=== PATIENT | female | born 1970 | race Caucasian/White ===

== ENCOUNTER 2021-04-04 11:10 | Emergency (ER) | payer BC ==
--- NOTE | 2021-04-04 12:09 | RAD REPORT ---
EXAM DESCRIPTION: CT - Stone Protocol - 04/04/2021 11:49 am CLINICAL HISTORY: Flank pain. Abd pain;Flank pain COMPARISON: No comparisons TECHNIQUE: Axial images were obtained without oral or IV contrast. Lack of contrast limits solid org an and vascular assessment. The [id number] spans the entirety of the system partially obscuring uppermost abdomen and lung bases. Coronal reformatted images were obtained and reviewed. All CT scans are performed using dose optimization technique as appropriate and may include automated exposure control or mA/KV adjustment according to patient size. FINDINGS: The lower lung estevez are clear. Small gallstone is present in the gallbladder. Imaged portions of the liver and spleen show no suspicious findings on non-contrast imaging. The panc reas and adrenal glands are normal. No pathologic lymphadenopathy in the abdomen or pelvis. Punctate stone is seen in the superior calyx of the right kidney. No hydronephrosis is evident. No bowel obstruction, free air, free fluid or abscess. Normal appendix noted.IUD is present in the ut erus. No significant bony abnormality. IMPRESSION: Punctate calculus superior calyx right kidney.
[2021-04-04 13:26] LABS: Urine Blood 1+ (Negative); Urine Glucose Negative (Negative); Urine Protein Negative (Negative)
[2021-04-04 13:44] LABS: Urine RBC <5 /HPF (NONE SEEN)
[2021-04-04 13:45] LABS: Urine Bacteria LOADED /HPF (<20)
--- NOTE | 2021-04-04 13:48 | ER ---
Nurse's Notes [facility] Name: Luana Pineda Age: 50 yrs Sex: Female : 1970 Arrival Date: 04/04/2021 Time: 11:13 Bed 15 Private MD: Diagnosis: UTI/ Urinary tract infection, site not specified;Muscle spasm of back Presentation: 04/04 11:32 Chief complaint: Patient states: Back spasms for a few months. LLQ abd pain with dry ll1 heaves a couple weeks ago. Coronavirus screen: Client denies travel out of the [place] in the last 14 days. At this time, the client does not indicate any symptoms associated with coronavirus-19. Ebola Screen: Patient denies travel to an Ebola-affected area in the 21 days before illness onset. Initial Sepsis Screen: Does the patient meet any 2 criteria? No. Patient's initial sepsis screen is negative. Does the patient have a suspected source of infection? Yes: Acute abdominal pain. Risk Assessment: Do you want to hurt yourself or someone else? Patient reports no desire to harm self or others. Onset of symptoms was March 18, 2021. 11:32 Method Of Arrival: Ambulatory ll1 11:32 Acuity: SANTIAGO 3 ll1 Historical: - Allergies: 11:35 No Known Allergies; ll1 - PSHx: 11:35 gastric bypass; tubal ligation; ll1 - Immunization history:: Client reports having NOT received the Covid vaccine. Flu vaccine status is unknown. - Social history:: Smoking status: Patient denies any tobacco usage or history of. Screenin:08 Abuse screen: Denies threats or abuse. Nutritional screening: No deficits noted. jd3 Tuberculosis screening: No symptoms or risk factors identified. Fall Risk Ambulatory Aid- None/Bed Rest/Nurse Assist (0 pts). Gait- Normal/Bed Rest/Wheelchair (0 pts) Mental Status- Oriented to own ability (0 pts). Total Pen[place] Fall Scale indicates No Risk (0-24 pts). Assessment: 14:06 General: Appears in no apparent distress. comfortable, Behavior is calm, cooperative, jd3 appropriate for age. Pain: Complains of pain in left flank, right flank and abdomen Quality of pain is described as aching. Neuro: Level of Consciousness is awake, alert, obeys commands, Oriented to person, place, time, situation. Cardiovascular: Denies chest pain, Capillary refill < 3 seconds Patient's skin is warm and dry. Respiratory: Airway is patent Respiratory effort is even, unlabored, Respiratory pattern is regular, symmetrical, Denies cough, shortness of breath. GI: No signs and/or symptoms were reported involving the gastrointestinal system. : Urine is cloudy, Reports pain in right in left flank(s). EENT: No signs and/or symptoms were reported regarding the EENT system. Derm: Skin is intact, Skin is dry, Skin is normal, Skin temperature is warm. Musculoskeletal: Circulation, motion, and sensation intact. Range of motion: intact in all extremities. Vital Signs: 11:32 Resp 18; Temp 97.1; Weight 106.14 kg; Height 5 ft. 9 in. (175.26 cm); Pain 7/10; ll1 11:35 BP 153 / 84; Pulse 77; Pulse Ox 100% ; ll1 14:08 Pulse 75; Resp 17 S; Pulse Ox 100% on R/A; jd3 11:32 Body Mass Index 34.56 (106.14 kg, 175.26 cm) ll1 ED Course: 11:13 Patient arrived in ED. ds1 11:32 Arm band placed on. ll1 11:34 Triage completed. ll1 11:45 [facility]C [facility]. kb 11:45 Ramón Pérez MD is Attending Physician. kb 11:48 CT Stone Protocol In Process Unspecified. EDMS 13:05 Patient placed in an exam room, on a stretcher. ll1 13:07 Davidson Forrest RN is Primary Nurse. jd3 13:28 Urine Microscopic Only Sent. jd3 14:08 Patient has correct armband on for positive identification. Bed in low position. Call jd3 light in reach. Side rails up X 1. Pulse ox on. NIBP on. 14:08 No provider procedures requiring assistance completed. Patient did not have IV access jd3 during this emergency room visit. Administered Medications: 13:47 CANCELLED (Physician Discretion): Augmentin (Amoxicillin-Clavulanate) 875 mg PO once kb 14:06 Drug: Augmentin (Amoxicillin-Clavulanate) 875 mg Route: PO; jd3 14:06 Follow up: Response: Medication administered at discharge. jd3 Outcome: 13:48 Discharge ordered by . salo 14:08 Discharged to home ambulatory, with family. jd3 14:08 Condition: stable 14:08 Discharge instructions given to patient, Instructed on discharge instructions, follow up and referral plans. Demonstrated understanding of instructions, follow-up care, medications, Prescriptions given X 2. 14:09 Patient left the ED. jd3 Addendum: 04/07/2021 08:29 Addendum: Culture Results: Positive urine culture. No further action required. Bacteria s s sensitive to prescribed antibiotic. Signatures: Dispatcher [employer] EDCO Jane Hernandez, FOREMAN/PILE [employer]IVING [employer] ERECTION-C FOREMAN/PILE [employer]IVING [employer]RECTION-Brandi Guerra ds1 Joana Cancino RN RN Davidson Albarado RN RN jd3 Nikole Sharma RN RN ll1
--- NOTE | 2021-04-04 13:48 | EDPHYS ---
Physician Documentation [facility] Name: Luana Pineda Age: 50 yrs Sex: Female : 1970 Arrival Date: 04/04/2021 Time: 11:13 Bed 15 Private MD: ED Physician Ramón Pérez HPI: 04/04 12:58 This 50 yrs old Female presents to ER via Ambulatory with complaints of Back kb Pain - Spasms, Abdominal Pain. 12:58 The patient presents with pain and spasm. The symptoms are located in the left flank kb and right flank. Onset: The symptoms/episode began/occurred "months ago". The pain radiates to the abdomen. Associated signs and symptoms: The patient has no apparent associated signs or symptoms. The problem was sustained from unknown cause. Modifying factors: The patient symptoms are alleviated by nothing, the patient symptoms are aggravated by any movement, nothing. Severity of symptoms: At their worst the symptoms were moderate, in the emergency department the symptoms have improved. The patient has not experienced similar symptoms in the past. The patient has not recently seen a physician. Patient reports intermittent back spasms for months. States a couple of weeks ago the cramps started radiating around abdomen and causing nausea. States it happened this morning and she decided to come in to see what was going on today. Has appointment this week with PCP.. Historical: - Allergies: 11:35 No Known Allergies; ll1 - PSHx: 11:35 gastric bypass; tubal ligation; ll1 - Immunization history:: Client reports having NOT received the Covid vaccine. Flu vaccine status is unknown. - Social history:: Smoking status: Patient denies any tobacco usage or history of. ROS: 12:17 Constitutional: Negative for fever, chills, and weight loss. kb 12:18 Abdomen/GI: Positive for abdominal pain, nausea, Negative for vomiting. kb 12:18 Back: Positive for low back spasms that radiate around to abd. 12:18 All other systems are negative. Exam: 12:57 Constitutional: This is a well developed, well nourished patient who is awake, alert, kb and in no acute distress. Head/Face: Normocephalic, atraumatic. ENT: Moist Mucous membranes Cardiovascular: Regular rate and rhythm with a normal S1 and S2. No gallops, murmurs, or rubs. No pulse deficits. Respiratory: Respirations even and unlabored. No increased work of breathing, no retractions or nasal flaring. Abdomen/GI: Soft, non-tender. No distention Back: No spinal tenderness. No costovertebral tenderness. Full range of motion. Skin: Warm, dry with normal turgor. Normal color. MS/ Extremity: Pulses equal, no cyanosis. Neurovascular intact. Full, normal range of motion. Neuro: Awake and alert, GCS 15, oriented to person, place, time, and situation. Moves all extremities. Normal gait. Psych: Awake, alert, with orientation to person, place and time. Behavior, mood, and affect are within normal limits. Vital Signs: 11:32 Resp 18; Temp 97.1; Weight 106.14 kg; Height 5 ft. 9 in. (175.26 cm); Pain 7/10; ll1 11:35 BP 153 / 84; Pulse 77; Pulse Ox 100% ; ll1 14:08 Pulse 75; Resp 17 S; Pulse Ox 100% on R/A; jd3 11:32 Body Mass Index 34.56 (106.14 kg, 175.26 cm) ll1 MDM: 11:47 Patient medically screened. kb 12:16 Data reviewed: vital signs, nurses notes. Data interpreted: Pulse oximetry: on room air kb is 100 %. Interpretation: normal. 12:57 Counseling: I had a detailed discussion with the patient and/or guardian regarding: the kb historical points, exam findings, and any diagnostic results supporting the discharge/admit diagnosis, lab results, radiology results, the need for outpatient follow up, a family practitioner, to return to the emergency department if symptoms worsen or persist or if there are any questions or concerns that arise at home. 04/04 13:25 Order name: Urine Dipstick-Ancillary; Complete Time: 13:27 EDNH 04/04 13:26 Order name: Urine Microscopic Only; Complete Time: 13:46 kb 04/04 11:40 Order name: CT Stone Protocol; Complete Time: 12:10 ll1 04/04 13:46 Order name: Urine Culture [facility] 04/04 11:40 Order name: Urine Dipstick-Ancillary (obtain specimen); Complete Time: 13:28 ll1 Administered Medications: 13:47 CANCELLED (Physician Discretion): Augmentin (Amoxicillin-Clavulanate) 875 mg PO once kb 14:06 Drug: Augmentin (Amoxicillin-Clavulanate) 875 mg Route: PO; jd3 14:06 Follow up: Response: Medication administered at discharge. jd3 Disposition: 16:04 Co-signature as Attending Physician, Ramón Pérez MD. rn Disposition Summary: 04/04/21 13:48 Discharge Ordered Location: Home kb Condition: Stable kb Diagnosis - UTI/ Urinary tract infection, site not specified kb - Muscle spasm of back kb Followup: kb - With: Emergency Department - When: As needed - Reason: Worsening of condition Followup: kb - With: Private Physician - When: 2 - 3 days - Reason: Recheck today's complaints, Continuance of care, Re-evaluation by your physician Discharge Instructions: - Discharge Summary Sheet kb - Urinary Tract Infection, Adult, [id number] kb - Muscle Cramps and Spasms, [id number] kb Forms: - Medication Reconciliation Form kb - Thank You Letter kb - Antibiotic Education kb - Prescription Opioid Use kb Prescriptions: - Augmentin 875-125 mg Oral Tablet - take 1 tablet by ORAL route every 12 hours for 10 days; 20 tablet; Refills: 0, kb Product Selection Permitted - Cyclobenzaprine 10 mg Oral Tablet - take 1 tablet by ORAL route every 8 hours As needed; 21 tablet; Refills: 0, kb Product Selection Permitted Signatures: Dispatcher [employer] EDMS Jane Hernandez, DUONG-C VETERINARY PHARMACOLOGIST-Ramón Fink MD MD rn Davies, Jonathon, RN RN jNikole Ding RN RN ll1 Corrections: (The following items were deleted from the chart) 12:18 12:16 Counseling: I had a detailed discussion with the patient and/or guardian regarding: the historical points, exam findings, and any diagnostic results supporting the discharge/admit diagnosis, lab results, radiology results, the need for outpatient follow up, a urologist, to return to the emergency department if symptoms worsen or persist or if there are any questions or concerns that arise at home, kb 12:18 12:16 ED course: Discussed findings with ERP. Recommended outpatient follow up with kb urologist. Pt in agreement with plan. PT educated on return precautions. Verbal understanding received. . kb 12:18 12:17 Constitutional: Negative for fever, chills, and weight loss, kb kb 13:47 13:47 Augmentin (Amoxicillin-Clavulanate) 875 mg PO once ordered. kb kb
[2021-04-04] MEDS ORDERED: AMOX/K CLAV 875 MG TAB ONE (14:22)
[2021-04-04 14:24] VITALS: TEMP 97.1
[2021-04-04 14:30] VITALS: BP 153/84; O2SAT 100
== END 2021-04-04 14:09 | disposition home or self-care (01) ==
LOC: ER 11:10
DX: N39.0 Urinary tract infection, site not specified (principal)
CPT/HCPCS: 74176; 76377; 81003; 81015; 87077; 87086; 87088; 87186; 99284

== ENCOUNTER 2023-12-14 23:54 | Emergency (ER) | payer BC ==
--- OUTSIDE RECORDS SUMMARY | 2023-12-14 23:58 | XMS REPORT | Continuity of Care Document ---
Author Name Unknown Address [address] [facility] 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 Name Role Phone Trish Archer Attending Clinician Unavailable GC_GCBZW_Kadiyala_S Attending Clinician Unavaila ble WILFRID_John_ Attending Clinician Unavaila ble GC_GCBZW_Kadiyala_S Admitting Clinician Unavaila ble WILFRID_John_ Admitting Clinician Unavaila ble Payers Payer Name Policy Type Policy Number Effective Date Expirati on Date Source [place] [id number] 2020 00:00:00 Blue Cross Blue [facility] 6 [id number] 2020 00:00:00 [facility] Problems Condition Name Condition Details Condition Category Status Onset Date Resolution Date Last Treatment Date Treating Clinician Comments Source Excessive and frequent menstruati on Excessive and Frequent Menstruati on Problem Active 11-30 00:00: 00 [facility] Intertrigo Intertrigo Problem Active 11-30 00:00: 00 [facility] Reduced libido Reduced Libido Problem Active 11-30 00:00: 00 [facility] Essential hypertensi on Essential Hypertensi on Problem Active 11-27 00:00: 00 [facility] Abnormal heart beat Abnormal Heart Beat Problem Active 11-27 00:00: 00 [facility] Medical Vitamin D deficiency Vitamin D deficiency Problem [facility] [id number] Gastric bypass status for obesity Problem [facility] [id number] Vertigo Problem [facility] [id number] Anxiety about health Problem [facility] [id number] BMI 37.0-37.9, adult Problem [facility] Iron deficiency Iron deficiency Problem [facility] [id number] Reactive depression Problem [facility] Hyperlipid emia Hyperlipid emia Problem [facility] [id number] Encounter for annual routine gynecologi mabel examinatio n Problem [facility] [id number] Dysuria Problem [facility] [id number] Prediabete s Problem [facility] Family history of ischemic heart disease Family history of coronary artery disease in daughter Problem [facility] mammogram - screening Screening mammogram, encounter for Problem [facility] Social History Social Habit Start Date Stop Date Quantity Comments Source History of Tobacco Use [facility] Sex Assigned At [facility] Smoking Status Start Date Stop Date Source Never Smoker [facility] Medications Ordered Medication Name Filled Medication Name Start Date Stop Date Current Medication? Ordering Clinician Indication Dosage Frequency Signature (SIG) Comments Components Source Wegovy 0.25 MG/0.5ML Wegovy 0.25 MG/0.5ML 04-20 00:00: 00 No .5{ml} Wegovy 0.25 MG/0.5ML Wegovy 0.25 MG/0.5ML Wegovy 0.25 MG/0.5ML 04-20 00:00: 00 No .5{ml} Wegovy 0.25 MG/0.5ML Wegovy 0.25 MG/0.5ML Wegovy 0.25 MG/0.5ML 04-20 00:00: 00 No .5{ml} Wegovy 0.25 MG/0.5ML Wegovy 0.25 MG/0.5ML Wegovy 0.25 MG/0.5ML 8 00:00: 00 No .5{ml} Wegovy 0.25 MG/0.5ML Wegovy 0.25 MG/0.5ML Wegovy 0.25 MG/0.5ML 04-20 00:00: 00 No .5{ml} Wegovy 0.25 MG/0.5ML Wegovy 0.25 MG/0.5ML Wegovy 0.25 MG/0.5ML 04-20 00:00: 00 No .5{ml} Wegovy 0.25 MG/0.5ML Wegovy 0.25 MG/0.5ML Wegovy 0.25 MG/0.5ML 04-20 00:00: 00 No .5{ml} Wegovy 0.25 MG/0.5ML Wegovy 0.25 MG/0.5ML Wegovy 0.25 MG/0.5ML 04-20 00:00: 00 No .5{ml} Wegovy 0.25 MG/0.5ML Mirena 21 mcg/24 hours (8 yrs) 52 mg intrauterin e device Take by intrauterin e route. Mirena 21 mcg/24 hours (8 yrs) 52 mg intrauterin e device Take by intrauterin e route. 09-04 00:00: 00 No Mirena 21 mcg/24 hours (8 yrs) 52 mg intrauteri ne device Take by intrauteri ne route. [facility] vitamin B complex vitamin B complex No vitamin B complex [facility] Bariatric Multivitami ns/Iron - Bariatric Multivitami ns/Iron - No Bariatric Multivitam ins/Iron - Losartan Potassium 100 MG Losartan Potassium 100 MG No Losartan Potassium 100 MG Iron 325 (65 Fe) MG Iron 325 (65 Fe) MG No 1{table t} QD Iron 325 (65 Fe) MG Bariatric Multivitami ns/Iron - Bariatric Multivitami ns/Iron - No Bariatric Multivitam ins/Iron - Losartan Potassium 100 MG Losartan Potassium 100 MG No Losartan Potassium 100 MG Iron 325 (65 Fe) MG Iron 325 (65 Fe) MG No 1{table t} QD Iron 325 (65 Fe) MG Bariatric Multivitami ns/Iron - Bariatric Multivitami ns/Iron - No Bariatric Multivitam ins/Iron - Losartan Potassium 100 MG Losartan Potassium 100 MG No Losartan Potassium 100 MG Iron 325 (65 Fe) MG Iron 325 (65 Fe) MG No 1{table t} QD Iron 325 (65 Fe) MG Bariatric Multivitami ns/Iron - Bariatric Multivitami ns/Iron - No Bariatric Multivitam ins/Iron - Losartan Potassium 100 MG Losartan Potassium 100 MG No Losartan Potassium 100 MG Iron 325 (65 Fe) MG Iron 325 (65 Fe) MG No 1{table t} QD Iron 325 (65 Fe) MG Bariatric Multivitami ns/Iron - Bariatric Multivitami ns/Iron - No Bariatric Multivitam ins/Iron - Losartan Potassium 100 MG Losartan Potassium 100 MG No Losartan Potassium 100 MG Iron 325 (65 Fe) MG Iron 325 (65 Fe) MG No 1{table t} QD Iron 325 (65 Fe) MG Bariatric Multivitami ns/Iron - Bariatric Multivitami ns/Iron - No Bariatric Multivitam ins/Iron - Losartan Potassium 100 MG Losartan Potassium 100 MG No Losartan Potassium 100 MG Iron 325 (65 Fe) MG Iron 325 (65 Fe) MG No 1{table t} QD Iron 325 (65 Fe) MG Bariatric Multivitami ns/Iron - Bariatric Multivitami ns/Iron - No Bariatric Multivitam ins/Iron - Losartan Potassium 100 MG Losartan Potassium 100 MG No Losartan Potassium 100 MG Iron 325 (65 Fe) MG Iron 325 (65 Fe) MG No 1{table t} QD Iron 325 (65 Fe) MG Bariatric Multivitami ns/Iron - Bariatric Multivitami ns/Iron - No Bariatric Multivitam ins/Iron - Losartan Potassium 100 MG Losartan Potassium 100 MG No Losartan Potassium 100 MG Iron 325 (65 Fe) MG Iron 325 (65 Fe) MG No 1{table t} QD Iron 325 (65 Fe) MG losartan 100 mg tablet TAKE 1 TABLET BY MOUTH EVERY DAY losartan 100 mg tablet TAKE 1 TABLET BY MOUTH EVERY DAY No losartan 100 mg tablet TAKE 1 TABLET BY MOUTH EVERY DAY [facility] iron iron No iron [facility] losartan 100 mg tablet TAKE 1 TABLET BY MOUTH EVERY DAY losartan 100 mg tablet TAKE 1 TABLET BY MOUTH EVERY DAY No losartan 100 mg tablet TAKE 1 TABLET BY MOUTH EVERY DAY [facility] Multivitami n 50 Plus Multivitami n 50 Plus No Multivitam in 50 Plus [facility] nystatin 100,000 unit/gram topical cream APPLY TO AFFECTED AREA TWICE A DAY nystatin 100,000 unit/gram topical cream APPLY TO AFFECTED AREA TWICE A DAY No nystatin 100,000 unit/gram topical cream APPLY TO AFFECTED AREA TWICE A DAY [facility] Vital Signs Vital Name Observation Time Observation Value Comments S ource Height 2023-11-28 00:00:00 68 [in_i] [facility] Body Weight 2023-11-28 00:00:00 262.2 [lb_av] [facility] BMI (Body Mass Index) 2023-11-28 00:00:00 39.9 kg/m2 [facility] BP Systolic 2023-11-28 00:00:00 160 mm[Hg] [facility] BP Diastolic 2023-11-28 00:00:00 87 mm[Hg] [facility] BMI (Body Mass Index) 2023-10-05 00:00:00 35 kg/m2 [facility] Body Weight 2023-10-05 00:00:00 230 [lb_av] [facility] Height 2023-10-05 00:00:00 68 [in_i] [facility] height 2023-04-20 09:00:00 68 [in_i] Commo n [facility] weight 2023-04-20 09:00:00 245.6 [lb_av] Co mmon [facility] temperature 2023-04-20 09:00:00 97.1 [degF] Com mon [facility] bmi 2023-04-20 09:00:00 37.34 kg/m2 Comm on [facility] oximetry 2023-04-20 09:00:00 99 % Commo n [facility] respiratory rate 2023-04-20 09:00:00 16 /min Common [facility] blood pressure systolic 2023-04-20 09:00:00 140 mm[Hg] [facility] blood pressure diastolic 2023-04-20 09:00:00 84 mm[Hg] [facility] height 2023-02-27 14:00:00 68 [in_i] Commo n [facility] weight 2023-02-27 14:00:00 238.6 [lb_av] Co mmon [facility] temperature 2023-02-27 14:00:00 97.4 [degF] Com mon [facility] bmi 2023-02-27 14:00:00 36.28 kg/m2 Comm on [facility] oximetry 2023-02-27 14:00:00 97 % Commo n [facility] respiratory rate 2023-02-27 14:00:00 16 /min [facility] blood pressure systolic 2023-02-27 14:00:00 136 mm[Hg] [facility] blood pressure diastolic 2023-02-27 14:00:00 86 mm[Hg] [facility] Procedures Procedure Date / Time Performed Performing Clinician Source US, transvaginal 2023-12-01 00:00:00 [facility]R, thoracic spine, 2 view 2023-10-05 00:00:00 [facility] RADEX SPI LUMBOSAC MINIMUM 4 VIEWS 2023-10-05 00:00:00 [facility] RADEX SPI CRV MINIMUM 4 VIEWS 2023-10-05 00:00:00 [facility] MRI CERVICAL SPINE W/O CONTRAST 2023-10-05 00:00:00 [facility] Gastric Bypass for Obesity 2016-09-04 00:00:00 [facility] Tubal Ligation 2001-09-04 00:00:00 [facility] Delivery 2001-09-04 00:00:00 [facility] Delivery 1999-09-04 00:00:00 [facility] Caesarean Section [facility] Sports Medicine Gastrointestinal Surgery [facility] Plan of Care Planned Activity Planned Date Details Comments Source Future Appointment 2024-01-19 10:00:00 Zina priest, [address], [place] [phone] [facility] Future Appointment 2024-01-12 08:15:00 Zenaida yoon, [address], [place] [phone] [facility] Medical Encounters Start Date/Time End Date/Time Encounter Type Admission Type Attending [facility] Care Department Encounter ID Source 2023-04-21 11:41:00 Outpatient Trish Archer [facility] [id number] [facility] 2023-02-27 13:42:02 Outpatient Trish Archer [facility] [id number] [facility] 2023-12-14 00:00:00 2023-12-14 00:00:00 Outpatient GC_GCBZW_Ka diyala_S PRIV PRIV [id number] [facility] 2023-12-05 00:00:00 2023-12-05 00:00:00 (TEL) [facility] [id number] [facility] 2023-12-01 00:00:00 2023-12-01 00:00:00 Zenaida Burk MD: [address], [address], [place] [phone] , Ph. GC_GCBZW_Ka diyala_S [facility] - GC_GCBZW_Sera [facility]* [id number] [facility] 2023-11-28 00:00:00 2023-11-28 00:00:00 CARRINGTON Gallardo: [address], [address], [place] [phone] , Ph. GC_GCBZW_Ka diyala_S [facility] - GC_GCBZW_[facility]* [id number] [facility] 2023-11-27 00:00:00 2023-11-27 00:00:00 Outpatient GC_GCBZW_Ka diyala_S PRIV PRIV [id number] [facility] 2023-11-17 00:00:00 2023-11-17 00:00:00 Outpatient GC_GCBZW_Ka sincere_Noemi [facility] [id number] [facility] 2023-10-31 00:00:00 2023-10-31 00:00:00 Ambrose Contreras MD: [address] [place] [address] , Ph. FOG_Chantal Guallpa [place] [facility] [place] - FOG_Telemed [facility] [id number] [facility] 2023-10-27 00:00:00 2023-10-27 00:00:00 (TEL) [facility] [id number] [facility] 2023-10-05 00:00:00 2023-10-05 00:00:00 Ambrose Contreras MD: [address] [phone] , Ph. [phone] FOG_Chantal Guallpa [place] [facility] [place] - [facility] [place] [id number] [facility] 2023-10-05 00:00:00 2023-10-05 00:00:00 Ambrose Contreras MD: [address] [phone] , Ph. [phone] [place] [facility] [place] - [facility] [place] [id number] [facility] 2023-10-04 00:00:00 2023-10-04 00:00:00 Outpatient FOG_Chantal [place] [id number] [facility] 2023-10-03 00:00:00 2023-10-03 00:00:00 [facility] [id number] [facility] 2023-06-26 00:00:00 2023-06-26 00:00:00 (TEL) [facility] [id number] [facility] 2023-05-01 00:00:00 2023-05-01 00:00:00 (TEL) [facility] [id number] [facility] 2023-04-21 00:00:00 2023-04-21 00:00:00 (TEL) [facility]LMLC [facility] [id number] [facility] 2023-04-20 00:00:00 2023-04-20 00:00:00 PREV VISIT EST AGE 40-64 STLMLC STLMLC [id number] [facility] 2023-03-21 00:00:00 2023-03-21 00:00:00 (TEL) STLMLC STLMLC [id number] [facility] 2023-02-27 00:00:00 2023-02-27 00:00:00 OFFICE VISIT ESTAB PT LEVEL 3 [facility] [id number] [facility] Results Test Description Test Time Test Comments Results Result Co mments Source [facility] panel - Blood by Automated [id number] 00:00:00* Test Item Value Reference Range Interpretation Comme nts WBC (test code = WBC) 8.2 10 3.7-12.0 RBC (test code = RBC) 4.72 10 3.60-5.50 HGB (test code = HGB) 12.6 g/dL 11.5-15.6 HCT (test code = HCT) 39.4 % 34.5-46.5 MCV (test code = MCV) 83.4 um 80.0-102.0 MCH (test code = MCH) 26.6 pg 25.0-34.1 MCHC (test code = MCHC) 31.9 g/dL 29.0-35.0 RDW (test code = RDW) 14.6 % 10.9-16.9 plt (test code = plt) 360 10 136-392 MPV (test code = MPV) 9.0 um 7.4-11.1 gran % (test code = gran %) 62.1 % 36.0-78.0 lymph % (test code = lymph %) 30.2 % 12.0-48.0 mono % (test code = mono %) 4.7 % 0.0-13.0 eos % (test code = eos %) 2 % 0-8 baso % (test code = baso %) 1 % 0-2 gran # (test code = gran #) 5.1 10 1.2-6.8 lymph # (test code = lymph #) 2.5 10 1.2-3.2 mono # (test code = mono #) 0.4 10 0.3-0.8 eos # (test code = eos #) 0.2 10 0.0-0.4 baso # (test code = baso #) 0.1 10 0.0-0.2 [facility] [Mass/volume] - Serum or Plasma 2023-11-29 00:00:00* Test Item Value Reference Range Interpretation Comme nts free testosterone (test code = free testosterone) 0.06 NG/dL 0.12-0.64 L sex hormone binding globulin (test code = sex hormone binding globulin) 92.80 nmol/L 10.00-57.00 H testosterone (test code = testosterone) 7.1 NG/dL 8.4-48.1 L [facility] [Units/volume] in Serum or [id number] 00:00:00* Test Item Value Reference Range Interpretation Comme nts TSH (test code = TSH) 1.660 uIU/mL 0.500-4.530 [facility]stradiol (E2) [Mass/volume] in Serum or [id number] 00:00:00 * Test Item Value Reference Range Interpretation Comme nts estradiol (test code = estradiol) 27.5 pg/mL 6.1-91.9 [facility]ollitropin [Units/volume] in Serum or [id number] 00:00:00* Test Item Value Reference Range Interpretation Comme nts FSH (test code = FSH) 14.3 mIU/mL [facility]inal[facility] macro (dipstick) panel - [id number] 11:32:00* Test Item Value Reference Range Interpretation Comme nts Leukocytes (test code = Leukocytes) Negative Nitrite (test code = Nitrite) negative Urobilinogen (test code = Urobilinogen) Normal Protein (test code = Protein) Negative pH (test code = pH) 6.0 Blood (test code = Blood) 3+ Specific [place] (test code = Specific [place]) 1.005 Ketone (test code = Ketone) Negative Bilirubin (test code = Bilirubin) Negative Glucose (test code = Glucose) Negative Appearance (test code = Appearance) Slightly Cloudy Color (test code = Color) Yellow [facility] TEST, THINPREP REFLEX HPV HIGH IF [id number] 00:00:00* Test Item Value Reference Range Interpretation Comme nts CPT: (test code = 34763-0) (NOTE) TRACK FITTER: (test code = 77051-9) MUNA Kwan(ASCP) HPV HIGH RISK IF ASC-US, THINPREP (test code = 08922-3) CRITERIA NOT MET LMP: (test code = 8665-2) NOT GIVEN SLIDES: (test code = 83359-1) 1 SOURCE: (test code = 20148-6) Unspecified SPECIMEN ADEQUACY: (test code = 14467-8) (NOTE) IRON, [id number] 00:00:00* Test Item Value Reference Range Interpretation Comme nts IRON, TOTAL (test code = 2498-4) 113 mcg/dL See_Comment N [Automated [employer] ge] The system which generated this result transmitted reference range: 45-160 mcg/dL. The reference range was not used to interpret this result as normal/abnormal. MICROALBUMIN, RANDOM URINE (W/CREATININE)2023-03-24 00:00:00* Test Item Value Reference Range Interpretation Comme nts CREATININE, RANDOM URINE (test code = 2161-8) 45 mg/dL See_Comment N [Automated [employer]] The system which generated this result transmitted reference range: 20-275 mg/dL. The reference range was not used to interpret this result as normal/abnormal. ALBUMIN, URINE (test code = 38352-0) 1.1 mg/dL See Note: mg/dL N ALBUMIN/CREATININ E RATIO, RANDOM URINE (test code = 9318-7) 24 mcg/mg creat See_Comment N [Automated [employer]] The system which generated this result transmitted reference range: <30 mcg/mg creat. The reference range was not used to interpret this result as normal/abnormal.
[2023-12-15] MEDS ORDERED: MORPHINE 4 MG/ML SYR ONE (00:40)
[2023-12-15] MEDS ORDERED: KETOROLAC 30 MG/ML INJ ONE (00:40)
[2023-12-15] MEDS ORDERED: NA CHLORIDE 0.9% 1,000 ML ONE (00:40)
[2023-12-15] MEDS ORDERED: ONDANSETRON 4 MG/2 ML VIAL ONE (00:40)
[2023-12-15] MEDS ORDERED: FAMOTIDINE 20 MG/2 ML VIAL IV ONE (00:40)
[2023-12-15 00:49] LABS: Absolute Basophils 0.1 K/uL (0-0.5); Absolute Eosinophils 0.1 K/uL (0-0.5); Absolute Lymphocytes (CBC) 1.4 K/uL (0.7-4.9); Absolute Monocytes 0.7 K/uL (0.1-1.3); Absolute Neutrophil 14.7 K/uL (1.8-8.0); Basophils % 0.6 % (0-1.3); Eosinophils % 0.4 % (0-4.4); Hematocrit 35.7 % (36.0-45.0); Hemoglobin 11.8 g/dL (12.0-15.0); Lymphocytes % 8.4 % (15.3-44.8); MCH 26.5 pg (27.0-35.0); MCHC 33.2 g/dL (32.0-36.0); MCV 79.9 fL (80-100); MPV 7.5 fL (7.6-11.3); Monocytes % 4.2 % (3.3-12.3); Neutrophils % 86.4 % (41.7-73.7); Nucleated Red Blood Cells % 0.1 % (0-0); Platelets 326 thou/uL (152-406); RBC Red Blood Cell Count 4.47 M/uL (3.86-4.86); Red Cell Distribution Width 13.3 % (12.1-15.2)
[2023-12-15 01:12] LABS: Albumin 3.1 g/dL (3.4-5.0); Albumin/Globulin Ratio 0.7 (1.1-1.8); Anion Gap 7.8 mEq/L (5.0-15.0); Bilirubin Total 1.3 mg/dL (0.2-1.0); C-Reactive Protein 58.8 mg/L (<3.00); Globulin 4.4 g/dL (2.3-3.5); Potassium 3.8 mEq/L (3.5-5.1); Protein, Total 7.5 g/dL (6.4-8.2)
[2023-12-15 01:12] LABS: Specific Gravity 1.011 (1.005-1.030); Sqamous Epithelial <5 /HPF (None Seen); Urine Bacteria <20 /HPF (<20); Urine Bilirubin NEGATIVE (Negative); Urine Blood 2+ (Negative); Urine Clarity Turbid (Clear); Urine Color Light-Yellow (Yellow); Urine Culture Reflex Order NOT NEEDED; Urine Glucose 1+ (Negative); Urine Ketones NEGATIVE (Negative); Urine Microscopic Reflex YN ORDER UMIC; Urine Nitrite NEGATIVE (Negative); Urine Protein NEGATIVE (Negative); Urine RBC <5 /HPF (None Seen); Urine Urobilinogen Normal (Normal); Urine Yeast (Budding) Trace /HPF (None Seen)
[2023-12-15] MEDS ORDERED: NA CHLORIDE 0.9% 100 ML ONE (02:20)
[2023-12-15] MEDS ORDERED: PIPERACIL/TAZO 3.375 GM VIAL IV ONE (02:21)
--- NOTE | 2023-12-15 03:56 | EDPHYS ---
Physician Documentation [facility] Name: Luana Pineda Age: 52 yrs Sex: Female : 1970 Arrival Date: 12/14/2023 Time: 23:54 Bed 5 Private MD: ED Physician Derik Barrios HPI: 12/14 00:11 This 52 yrs old Female presents to ER via Ambulatory with complaints of sp4 Pelvic Pain. 00:20 52-year-old female presents with acute onset left lower quadrant abdominal pain sp4 associated with subjective fever. Pain started in the morning 12/14/2023 , patient has history of Dimas-en-Y gastric bypass and bilateral tubal ligation with IUD. Historical: - Allergies: 00:08 No Known Allergies; tl4 - Home Meds: 00:08 losartan 100 mg oral tablet 1 tab daily [Active]; tl4 - PMHx: 00:08 chronic back pain; Hypertensive disorder; tl4 - PSHx: 00:08 Gastric Bypass; tubal ligation; tl4 - Immunization history:: Adult Immunizations unknown. - Infectious Disease History:: Denies. - Social history:: Smoking status: Patient denies any tobacco usage or history of. - Family history:: not pertinent. ROS: 00:20 Constitutional: Positive subjective fever Abdomen/GI: Positive abdominal pain left sp4 lower quadrant 00:20 All other systems are negative, Exam: 00:20 Constitutional: This is a well developed, well nourished patient who is awake, alert, sp4 and in no acute distress. Head/Face: Normocephalic, atraumatic. Eyes: Pupils equal round and reactive to light, extra-ocular motions intact. Lids and lashes normal. Conjunctiva and sclera are not injected. Cornea within normal limits. Periorbital areas with no swelling, redness, or edema. ENT: Nares patent. No nasal discharge, no septal abnormalities noted. Tympanic membranes are normal and external auditory canals are clear. Oropharynx with no redness, swelling, or masses, exudates, or evidence of obstruction, uvula midline. Mucous membranes moist. Neck: Trachea midline, no thyromegaly or masses palpated, and no cervical lymphadenopathy. Supple, full range of motion without nuchal rigidity, or vertebral point tenderness. Chest/axilla: Normal chest wall appearance and motion. Nontender with no deformity. No lesions are appreciated. Cardiovascular: Regular rate and rhythm with a normal S1 and S2. No gallops, murmurs, or rubs. Normal PMI, no JVD. No pulse deficits. Respiratory: Lungs have equal breath sounds bilaterally, clear to auscultation and percussion. No rales, rhonchi or wheezes noted. No increased work of breathing, no retractions or nasal flaring. Abdomen/GI: Soft, with normal bowel sounds. No distension or tympany. No guarding Positive for left lower quadrant tenderness with rebound Back: No spinal tenderness. No costovertebral tenderness. Skin: Warm, dry with normal turgor. Normal color with no rashes, no lesions, and no evidence of cellulitis. MS/ Extremity: Pulses equal, no cyanosis. Neurovascular intact. Full, normal range of motion. Neuro: Awake and alert, GCS 15, oriented to person, place, time, and situation. Cranial nerves II-XII grossly intact. Motor strength 5/5 in all extremities. Sensory grossly intact. Psych: Awake, alert, with orientation to person, place and time. Behavior, mood, and affect are within normal limits Vital Signs: 00:05 BP 135 / 90; Pulse 111; Resp 16; Temp 98.5(TE); Pulse Ox 100% on R/A; Weight 117.93 kg; tl4 Height 5 ft. 9 in. ; Pain 6/10; 01:12 BP 115 / 75; Pulse 93; Pulse Ox 98% on R/A; tm6 03:04 BP 104 / 64; Pulse 76; Pulse Ox 99% on R/A; MAP 75 mmHg; tm6 04:10 BP 95 / 84; Pulse 85; Resp 18; Temp 97.9(TE); Pulse Ox 99% on R/A; Pain 2/10; tm6 00:05 Body Mass Index 38.39 (117.93 kg, 175.26 cm) tl4 00:05 Pain Scale: Adult tl4 04:10 Pain Scale: Adult tm6 [place] Coma Score: 00:20 Eye Response: spontaneous(4). Motor Response: obeys commands(6). Verbal Response: sp4 oriented(5). Total: 15. MDM: 00:14 Patient medically screened. sp4 03:46 ED course: EXAM DESCRIPTION: Abdomen Pelvis W Contrast 12/15/2023 3:22 AM CDT CLINICAL sp4 HISTORY: 52 years, Female, ABD PAIN COMPARISON: 04/04/2021 PROCEDURE: Contrast-enhanced images of the abdomen and pelvis were performed utilizing 5 mm slice thickness at 5 mm interval reconstruction from the lung bases to the ischial tuberosities after the administration of IV contrast. In addition multiplanar reformats in the coronal and sagittal plane were obtained and reviewed. An individualized dose optimization technique, Automated Exposure Control, was utilized for the performed procedure. FINDINGS: Lung bases: The lung bases demonstrated presence of compressive atelectatic changes lung bases. Liver: The liver demonstrates to be normal, no focal lesions identified. Gallbladder: The gallbladder demonstrate to be normal. Adrenal glands: The adrenal glands demonstrate to be normal. Pancreas: The pancreas demonstrate to be normal. Spleen: The spleen demonstrate to be within normal limits. Kidneys: The kidneys demonstrate normal uptake of contrast media. There is cortical deformity upper pole right kidney perhaps corresponding to a focus of scarring. There is a upper pole right renal calculus measuring 1.6 mm on image 32. There is no evidence for hydronephrosis and/or hydroureter and either kidney. There are no significant cystic lesions. GI: Grossly the unopacified stomach demonstrate status post gastric bypass jejunostomy. Otherwise the stomach, small bowel and large bowel demonstrate to be within normal limits. Surgical suture/anastomosis is identified within the left flank with no cocaine features. No evidence for bowel dilatation and/or free air. The appendix is normal. Mildly fluid-filled cecum. The left-sided colon demonstrate to be decompressed with no gross abnormalities. : The urinary bladder demonstrate to be unremarkable. Genitalia: The uterus demonstrate to be within normal limits. There is abnormal position radiodense structure within the lower portion of the uterine segment, slightly tilted corresponding to a intrauterine device lower in position There are normal adnexal structures. Abdominal aorta: The aorta demonstrate to be within normal limits. Retroperitoneum:There is no retroperitoneal lymphadenopathy. There is no evidence for ascites and/or abnormal fluid collections. Bones: The bony structures demonstrate to be within normal limits. Soft tissues: The rest of the soft tissue and bony structures are within normal limits. IMPRESSION: Status post gastric bypass jejunostomy. 1.6 mm nonobstructing right renal calculus. No evidence for hydronephrosis and/or hydroureter and either kidney. Intrauterine device lower in position. Compressive atelectatic changes lung bases. Otherwise unremarkable CT scan of the abdomen and pelvis with contrast. Electronically signed by: Gio Rosario MD 12/15/2023 03:27 AM. 06:17 Differential Diagnosis altered mental status, sepsis, flu, Enteritis and colitis. Data sp4 reviewed: vital signs, nurses notes, lab test result(s), radiologic studies, CT scan. ED course: CT has revealed status post gastric bypass, 1.6 cm non obstructing right renal calculus. No evidence of hydronephrosis. Intrauterine device present. Compressive atelectasis lung bases. Otherwise unremarkable CT, no emergent findings. . ED course: Patient advised clear liquid diet also Flagyl and Keflex for 10 days. For presumed colitis and enteritis. 04 00:19 Order name: CBC with Diff; Complete Time: 02:16 sp4 12/14 00:19 Order name: CMP; Complete Time: 02:16 sp4 12/14 00:19 Order name: Lipase; Complete Time: 02:16 sp4 12/14 00:19 Order name: Urinalysis w/ reflexes; Complete Time: 02:16 sp4 12/14 00:19 Order name: CRP; Complete Time: 02:16 sp4 12/14 00:19 Order name: CT Abd/Pelvis - IV Contrast Only sp4 12/14 00:19 Order name: IV Saline Lock; Complete Time: 00:44 sp4 12/14 00:19 Order name: Labs collected and sent; Complete Time: 00:44 sp4 Administered Medications: 00:55 Drug: NS 0.9% IV 1000 ml IV at 1 bolus Per protocol; 1000 mL bolus Route: IV; Rate: 1 ha1 bolus; Site: right forearm; 02:40 Follow up: Response: No adverse reaction; IV Status: Completed infusion; IV Intake: ha1 1000ml 00:55 Drug: Famotidine IVP 20 mg IVP once; dilute with 10 mL 0.9% NaCl; give over 2 minutes ha1 Route: IVP; Site: right forearm; 01:30 Follow up: Response: No adverse reaction; Marked relief of symptoms ha1 00:57 Drug: Ondansetron IVP 4 mg IVP once; over 2 minutes Route: IVP; Site: right forearm; ha1 01:30 Follow up: Response: No adverse reaction; Marked relief of symptoms ha1 01:00 Drug: TORadol - Ketorolac IVP 15 mg IVP once Route: IVP; Site: right forearm; ha1 01:30 Follow up: Response: No adverse reaction; Marked relief of symptoms; Pain is decreased ha1 01:02 Drug: morphine IVP or IV 4 mg IVP once over 4 mins Route: IVP; Infused Over: 4 mins; ha1 Site: right forearm; 01:30 Follow up: Response: No adverse reaction; Marked relief of symptoms; Pain is decreased; ha1 RASS: Alert and Calm (0) 02:39 Drug: Piperacillin-Tazobactam IVPB 3.375 grams IVPB once over 60 mins; (mix in NS 100 ha1 mL) Route: IVPB; Infused Over: 60 mins; Site: right forearm; 03:11 Follow up: IV Status: Completed infusion tm6 04:09 Drug: Cephalexin PO 500 mg PO once Route: PO; tm6 04:09 Drug: metroNIDAZOLE PO 500 mg PO once Route: PO; tm6 04:09 Drug: Promethazine PO 25 mg PO once Route: PO; tm6 04:09 Drug: Dicyclomine PO 20 mg PO once Route: PO; tm6 Disposition Summary: 12/15/23 03:55 Discharge Ordered Notes: Location: Home sp4 Problem: new sp4 Symptoms: have improved sp4 Condition: Stable sp4 Diagnosis - Infectious gastroenteritis and colitis, unspecified sp4 - Acute gastroenteritis, elevated blood sugar sp4 Followup: sp4 - With: Private Physician - When: 7 - 10 days - Reason: Recheck today's complaints Discharge Instructions: - Discharge Summary Sheet sp4 - Clear Liquid Diet, Adult, Gidh-[id number] sp4 Forms: - Patient Portal Instructions sp4 Prescriptions: - Cephalexin 500 mg Oral Capsule - take 1 capsule ORAL route every 12 hours for 10 days; 20 capsule; Refills: 0, sp4 Product Selection Permitted - Flagyl 500 mg Oral Tablet - take 1 tablet ORAL route every 8 hours for 10 days; 30 tablet; Refills: 0, sp4 Product Selection Permitted - Lomotil 2.5-0.025 mg Oral Tablet - take 1 tablet ORAL route every 6 hours As needed; 20 tablet; Refills: 0, sp4 Product Selection Permitted - promethazine 25 mg Oral Tablet - take 1 tablet ORAL route every 6 hours As needed; 20 tablet; Refills: 0, sp4 Product Selection Permitted - dicyclomine 20 mg Oral tablet - take 1 tablet ORAL route every 6 hours PRN abdominal pain; 30 tablet; Refills: sp4 0, Product Selection Permitted Signatures: Dispatcher [employer] EDMS Yessica Frost, KARLA RN ha1 Derik Barrios MD MD sp4 Magdalena Fernández RN RN tm6 Serjio Meza RN RN tl4 Corrections: (The following items were deleted from the chart) 00:09 00:08 Allergies: No Known Allergies; tl4 tl4 00:19 00:19 CBC+H.LAB.BRZ ordered. EDMS EDMS 00:19 00:19 COMPREHENSIVE METABOLIC PANEL+C.LAB.BRZ ordered. EDMS EDMS 00:19 00:19 LIPASE+C.LAB.BRZ ordered. EDMS EDMS 00:19 00:19 Urinalysis+U.LAB.BRZ ordered. EDMS EDMS
--- NOTE | 2023-12-15 03:56 | ER ---
Nurse's Notes [facility] Name: Luana Pineda Age: 52 yrs Sex: Female : 1970 Arrival Date: 12/14/2023 Time: 23:54 Bed 5 Private MD: Diagnosis: Infectious gastroenteritis and colitis, unspecified;Acute gastroenteritis, elevated blood sugar Presentation: 12/14 00:05 Chief complaint: Patient states: Pt c/o lower abdominal pain/burning and nausea all tl4 day. Coronavirus screen: At this time, the client does not indicate any symptoms associated with coronavirus-19. Ebola Screen: No symptoms or risks identified at this time. Initial Sepsis Screen: Does the patient meet any 2 criteria? No. Patient's initial sepsis screen is negative. Does the patient have a suspected source of infection? No. Patient's initial sepsis screen is negative. Risk Assessment: Do you want to hurt yourself or someone else? Patient reports no desire to harm self or others. Onset of symptoms was December 15, 2023. 00:05 Method Of Arrival: Ambulatory tl4 00:05 Acuity: SANTIAG[place] 3 tl4 Triage Assessment: 00:09 General: Appears uncomfortable, Behavior is calm, cooperative. Pain: Complains of pain tl4 in abdomen. EENT: No signs and/or symptoms were reported regarding the EENT system. Neuro: Level of Consciousness is awake, alert, obeys commands, Oriented to person, place, time, situation, Moves all extremities. Gait is steady, Speech is normal. Cardiovascular: Capillary refill < 3 seconds Patient's skin is warm and dry. Respiratory: Airway is patent Respiratory effort is even, unlabored, Respiratory pattern is regular, symmetrical. GI: Reports lower abdominal pain, nausea. : No signs and/or symptoms were reported regarding the genitourinary system. Derm: No signs and/or symptoms reported regarding the dermatologic system. Musculoskeletal: No signs and/or symptoms reported regarding the musculoskeletal system. Historical: - Allergies: 00:08 No Known Allergies; tl4 - Home Meds: 00:08 losartan 100 mg oral tablet 1 tab daily [Active]; tl4 - PMHx: 00:08 chronic back pain; Hypertensive disorder; tl4 - PSHx: 00:08 Gastric Bypass; tubal ligation; tl4 - Immunization history:: Adult Immunizations unknown. - Infectious Disease History:: Denies. - Social history:: Smoking status: Patient denies any tobacco usage or history of. - Family history:: not pertinent. Screenin:17 [facility] ED Fall Risk Assessment (Adult) History of falling in the last 3 months, tm6 including since admission No falls in past 3 months (0 pts) Confusion or Disorientation No (0 pts) Intoxicated or Sedated No (0 pts) Impaired Gait No (0 pts) Mobility Assist Device Used No (0 pt) Altered Elimination No (0 pt) Score/Fall Risk Level 0 - 2 = Low Risk Oriented to surroundings, Maintained a safe environment. Abuse screen: Denies threats or abuse. Denies injuries from another. Nutritional screening: No deficits noted. Tuberculosis screening: No symptoms or risk factors identified. Assessment: 00:17 General: Appears uncomfortable, Behavior is calm, cooperative. Pain: Complains of pain tm6 in suprapubic area and left lower quadrant Pain currently is 8 out of 10 on a pain scale. Also complains of nausea. Neuro: Level of Consciousness is awake, alert, obeys commands, Oriented to person, place, time, situation. Cardiovascular: No deficits noted. Patient's skin is warm and dry. Respiratory: Airway is patent Respiratory effort is even, unlabored, Respiratory pattern is regular, symmetrical. GI: Abdomen is round non-distended, Abd is soft Abdomen is tender to palpation X 4 quads. Reports lower abdominal pain, upper abdominal pain, nausea. : No signs and/or symptoms were reported regarding the genitourinary system. EENT: No signs and/or symptoms were reported regarding the EENT system. Derm: No signs and/or symptoms reported regarding the dermatologic system. Musculoskeletal: No signs and/or symptoms reported regarding the musculoskeletal system. 01:12 Reassessment: Patient appears in no apparent distress at this time. Patient and/or tm6 family updated on plan of care and expected duration. Pain level reassessed. Patient is alert, oriented x 3, equal unlabored respirations, skin warm/dry/pink. 02:00 Reassessment: Patient and/or family updated on plan of care and expected duration. Pain ha1 level reassessed. Patient is alert, oriented x 3, equal unlabored respirations, skin warm/dry/pink. Patient states feeling better. Patient states symptoms have improved. 03:05 Reassessment: No changes from previously documented assessment. tm6 04:11 Reassessment: Patient states feeling better. tm6 Vital Signs: 00:05 BP 135 / 90; Pulse 111; Resp 16; Temp 98.5(TE); Pulse Ox 100% on R/A; Weight 117.93 kg; tl4 Height 5 ft. 9 in. ; Pain 6/10; 01:12 BP 115 / 75; Pulse 93; Pulse Ox 98% on R/A; tm6 03:04 BP 104 / 64; Pulse 76; Pulse Ox 99% on R/A; MAP 75 mmHg; tm6 04:10 BP 95 / 84; Pulse 85; Resp 18; Temp 97.9(TE); Pulse Ox 99% on R/A; Pain 2/10; tm6 00:05 Body Mass Index 38.39 (117.93 kg, 175.26 cm) tl4 00:05 Pain Scale: Adult tl4 04:10 Pain Scale: Adult tm6 [place] Coma Score: 00:20 Eye Response: spontaneous(4). Motor Response: obeys commands(6). Verbal Response: sp4 oriented(5). Total: 15. ED Course: 12/13 23:58 Patient arrived in ED. ra3 04 00:07 Magdalena Fernández, KARLA is Primary Nurse. tm6 00:08 Triage completed. tl4 00:10 Arm band placed on right wrist. tl4 00:11 Derik Barrios MD is Attending Physician. sp4 00:17 Patient has correct armband on for positive identification. Placed in gown. Bed in low tm6 position. Call light in reach. Side rails up X2. Provided Education on: plan of care. Client placed on continuous cardiac and pulse oximetry monitoring. NIBP monitoring applied. Pulse ox on. NIBP on. Door closed. Warm blanket given. 00:44 Missed attempt(s): 20 gauge in right antecubital area. Bleeding controlled, band aid rv1 applied, catheter tip intact. 00:44 Inserted saline lock: 20 gauge in right forearm, using aseptic technique. Blood rv1 collected. 00:44 CBC with Diff Sent. rv1 00:44 CMP Sent. rv1 00:44 Lipase Sent. rv1 00:44 CRP Sent. rv1 00:49 Urinalysis w/ reflexes Sent. rv1 01:45 CT Abd/Pelvis - IV Contrast Only In Process Unspecified. EDMS 04:10 No provider procedures requiring assistance completed. IV discontinued, intact, tm6 bleeding controlled, No redness/swelling at site. Pressure dressing applied. Administered Medications: 00:55 Drug: NS 0.9% IV 1000 ml IV at 1 bolus Per protocol; 1000 mL bolus Route: IV; Rate: 1 ha1 bolus; Site: right forearm; 02:40 Follow up: Response: No adverse reaction; IV Status: Completed infusion; IV Intake: ha1 1000ml 00:55 Drug: Famotidine IVP 20 mg IVP once; dilute with 10 mL 0.9% NaCl; give over 2 minutes ha1 Route: IVP; Site: right forearm; 01:30 Follow up: Response: No adverse reaction; Marked relief of symptoms ha1 00:57 Drug: Ondansetron IVP 4 mg IVP once; over 2 minutes Route: IVP; Site: right forearm; ha1 01:30 Follow up: Response: No adverse reaction; Marked relief of symptoms ha1 01:00 Drug: TORadol - Ketorolac IVP 15 mg IVP once Route: IVP; Site: right forearm; ha1 01:30 Follow up: Response: No adverse reaction; Marked relief of symptoms; Pain is decreased ha1 01:02 Drug: morphine IVP or IV 4 mg IVP once over 4 mins Route: IVP; Infused Over: 4 mins; ha1 Site: right forearm; 01:30 Follow up: Response: No adverse reaction; Marked relief of symptoms; Pain is decreased; ha1 RASS: Alert and Calm (0) 02:39 Drug: Piperacillin-Tazobactam IVPB 3.375 grams IVPB once over 60 mins; (mix in NS 100 ha1 mL) Route: IVPB; Infused Over: 60 mins; Site: right forearm; 03:11 Follow up: IV Status: Completed infusion tm6 04:09 Drug: Cephalexin PO 500 mg PO once Route: PO; tm6 04:09 Drug: metroNIDAZOLE PO 500 mg PO once Route: PO; tm6 04:09 Drug: Promethazine PO 25 mg PO once Route: PO; tm6 04:09 Drug: Dicyclomine PO 20 mg PO once Route: PO; tm6 Medication: 00:17 VIS not applicable for this client. tm6 Intake: 02:40 IV: 1000ml; Total: 1000ml. ha1 Outcome: 03:55 Discharge ordered by . sp4 04:10 Discharged to home ambulatory, with family, tm6 04:10 Condition: stable 04:10 Discharge instructions given to patient, family, Instructed on discharge instructions, follow up and referral plans. medication usage, Demonstrated understanding of instructions, follow-up care, medications, Prescriptions given X 5 04:11 Patient left the ED. tm6 Signatures: Dispatcher [employer] EDMS Yessica Frost RN RN ha1 Latricia Arciniega rvDerik Martinez MD MD sp4 Magdalena Fernández RN RN tm6 Serjio Meza RN RN tl4 Michelle Noriega ra3 Corrections: (The following items were deleted from the chart) 00:09 00:08 Allergies: No Known Allergies; tl4 tl4
[2023-12-15] MEDS ORDERED: DICYCLOMINE HCL 10 MG CAP ONE (04:02)
[2023-12-15] MEDS ORDERED: CEPHALEXIN 250 MG CAP ONE (04:02)
[2023-12-15] MEDS ORDERED: metroNIDAZOLE 500 MG TABLET ONE (04:03)
[2023-12-15] MEDS ORDERED: PROMETHAZINE 25 MG TABLET ONE (04:03)
[2023-12-15 11:55] VITALS: BP 95/84; TEMP 97.9; O2SAT 99
--- NOTE | 2023-12-18 20:57 | RAD REPORT ---
EXAM DESCRIPTION: CT - Abdomen Pelvis W Contrast - 12/15/2023 6:43 am CLINICAL HISTORY: 52 years, Female, ABD PAIN COMPARISON: 04/04/2021 TECHNIQUE: Contrast-enhanced images of the abdomen and pelvis were performed utilizing 5 mm slice th ickness at 5 mm interval reconstruction from the lung bases to the ischial tuberosities after the adm inistration of IV contrast. In addition multiplanar reformats in the coronal and sagittal plane were obtained and reviewed. An individualized dose optimization technique, Automated Exposure Control, was utilized for the perfo rmed procedure. FINDINGS: Lung bases: The lung bases demonstrated presence of compressive atelectatic changes lung b ases. Liver: The liver demonstrates to be normal, no focal lesions identified. Gallbladder: The gallbladder demonstrate to be normal. Adrenal glands: The adrenal glands demonstrate to be normal. Pancreas: The pancreas demonstrate to be normal. Spleen: The spleen demonstrate to be within normal limits. Kidneys: The kidneys demonstrate normal uptake of contrast media. There is cortical deformity upper p ole right kidney perhaps corresponding to a focus of scarring. There is a upper pole right renal ca lculus measuring 1.6 mm on image 32. There is no evidence for hydronephrosis and/or hydroureter and e ither kidney. There are no significant cystic lesions. GI: Grossly the unopacified stomach demonstrate status post gastric bypass jejunostomy. Otherwise the stomach, small bowel and large bowel demonstrate to be within normal limits. Surgical suture/anastom osis is identified within the left flank with no cocaine features. No evidence for bowel dilatation a nd/or free air. The appendix is normal. Mildly fluid-filled cecum. The left-sided colon demonstrate t o be decompressed with no gross abnormalities. : The urinary bladder demonstrate to be unremarkable. Genitalia: The uterus demonstrate to be within normal limits. There is abnormal position radiodense s tructure within the lower portion of the uterine segment, slightly tilted corresponding to a intraute rine device lower in position There are normal adnexal structures. Abdominal aorta: The aorta demonstrate to be within normal limits. Retroperitoneum: There is no retroperitoneal lymphadenopathy. There is no evidence for ascites and/or abnormal fluid collections. Bones: The bony structures demonstrate to be within normal limits. Soft tissues: The rest of the soft tissue and bony structures are within normal limits. IMPRESSION: Status post gastric bypass jejunostomy. 1.6 mm nonobstructing right renal calculus. No evidence for hydronephrosis and/or hydroureter and eit her kidney. Intrauterine device lower in position. Compressive atelectatic changes lung bases. Otherwise unremarkable CT scan of the abdomen and pelvis with contrast. Electronically signed by: Gio Rosario MD 12/15/2023 03:27 AM CDT Due to temporary technical issues with the PACS/Fluency reporting system, reports are being signed by the in house radiologists without review as a courtesy to insure prompt reporting. The interpreting radiologist is fully responsible for the content of the report.
== END 2023-12-15 04:11 | disposition home or self-care (01) ==
LOC: ER 23:54
DX: A09 Infectious gastroenteritis and colitis, unspecified (principal); R73.9 Hyperglycemia, unspecified; I10 Essential (primary) hypertension; Z98.84 Bariatric surgery status
CPT/HCPCS: 96365; 96361; 85025; 81001; 36415; 83690; 80053; 86140; 74177; 96375; 99284; Q9967; Q0169; J2543; J2405; J7030

== ENCOUNTER 2024-01-28 03:46 | Emergency (ER) | payer BC ==
--- OUTSIDE RECORDS SUMMARY | 2024-01-28 03:49 | XMS REPORT | Continuity of Care Document ---
Author Name Unknown Address [address] [facility] [address] [place] [address] [email or web address] Address [address] [facility] [address] [place] [address] Care Team Providers Care Fish Peddler Name Role Phone Trish Archer Attending Clinician Unavailable GC_GCBZW_Kadiyala_S Attending Clinician Unavaila ble WILFRID_John_ Attending Clinician Unavaila ble GC_GCBZW_Kadiyala_S Admitting Clinician Unavaila ble WILFRID_John_ Admitting Clinician Unavaila ble Payers Payer Name Policy Type Policy Number Effective Date Expirati on Date Source [facility] 6 [id number] 2020 00:00:00 [facility] [id number] 2020 00:00:00 Problems Condition Name Condition Details Condition Category [...] Heart Beat Problem Active 11-27 00:00: 00 [facility] [id number] Leukocytos is, unspecifie d type Problem [facility] Vitamin D deficiency Vitamin D deficiency Problem [facility] [id number] Gastric bypass status for obesity Problem [facility] [id number] Vertigo Problem [facility] [id number] Anxiety about health Problem [facility] [id number] BMI 37.0-37.9, adult Problem [facility] Iron deficiency Iron deficiency Problem [facility] [id number] Reactive depression Problem [facility] Hyperlipid emia Hyperlipid emia Problem [facility] [id number] Encounter for annual routine gynecologi mabel examinatio n Problem [facility] [id number] Dysuria Problem [facility] [id number] Prediabete s Problem [facility] Family history of ischemic heart disease Family history of coronary artery disease in daughter Problem [facility] mammogram - screening Screening mammogram, encounter for Problem [facility] Social History Social Habit Start Date Stop Date Quantity Comments Source History of Tobacco Use [facility] Sex Assigned At [facility] Smoking Status Start Date Stop Date Source Never Smoker [facility] Medications Ordered Medication Name Filled Medication [...] Take by intrauteri ne route. [facility] Cephalexin 500 MG Cephalexin 500 MG No Cephalexin 500 MG metroNIDAZO LE 500 MG metroNIDAZO LE 500 MG No metroNIDAZ OLE 500 MG Bariatric Multivitami ns/Iron - Bariatric Multivitami [...] AFFECTED AREA TWICE A DAY [facility] vitamin B complex vitamin B complex No vitamin B complex [facility] Vital Signs Vital Name Observation Time Observation Value Comments S ource height 2023-12-22 09:00:00 68 [in_i] Commo n [facility] weight 2023-12-22 09:00:00 260.4 [lb_av] Co mmon [facility] temperature 2023-12-22 09:00:00 97.3 [degF] Com mon [facility] bmi 2023-12-22 09:00:00 39.59 kg/m2 Comm on [facility] oximetry 2023-12-22 09:00:00 97 % Commo n [facility] respiratory rate 2023-12-22 09:00:00 16 /min [facility] blood pressure systolic 2023-12-22 09:00:00 136 mm[Hg] [facility] blood pressure diastolic 2023-12-22 09:00:00 87 mm[Hg] [facility] Height 2023-11-28 00:00:00 68 [in_i] [facility] Height 2023-10-05 00:00:00 68 [in_i] [facility] height 2023-04-20 09:00:00 68 [in_i] Commo n [facility] weight 2023-04-20 09:00:00 245.6 [lb_av] Co [facility] temperature 2023-04-20 09:00:00 97.1 [degF] Com [facility] bmi 2023-04-20 09:00:00 37.34 kg/m2 Comm on [facility] oximetry 2023-04-20 09:00:00 99 % Commo n [facility] respiratory rate 2023-04-20 09:00:00 16 /min [facility] blood pressure systolic 2023-04-20 09:00:00 140 mm[Hg] [facility] blood pressure diastolic 2023-04-20 09:00:00 84 mm[Hg] [facility] height 2023-02-27 14:00:00 68 [in_i] Commo n [facility] weight 2023-02-27 14:00:00 238.6 [lb_av] Co mmon [facility] temperature 2023-02-27 14:00:00 97.4 [degF] Com [facility] bmi 2023-02-27 14:00:00 36.28 kg/m2 Comm on [facility] oximetry 2023-02-27 14:00:00 97 % Commo n [facility] respiratory rate 2023-02-27 14:00:00 16 /min [facility] blood pressure systolic 2023-02-27 14:00:00 136 mm[Hg] [facility] blood pressure diastolic 2023-02-27 14:00:00 86 mm[Hg] [facility] Procedures Procedure Date / Time Performed Performing Clinician Source US, transvaginal 2023-12-01 00:00:00 [facility] XR, thoracic spine, 2 view 2023-10-05 00:00:00 [facility] RADEX SPI LUMBOSAC MINIMUM 4 VIEWS 2023-10-05 00:00:00 [facility] RADEX SPI CRV MINIMUM 4 VIEWS 2023-10-05 00:00:00 [facility] MRI CERVICAL SPINE W/O CONTRAST 2023-10-05 00:00:00 [facility] Gastric Bypass for Obesity 2016-09-04 00:00:00 [facility] Tubal Ligation 2001-09-04 00:00:00 [facility] Delivery 2001-09-04 00:00:00 [facility] Delivery 1999-09-04 00:00:00 [facility] Caesarean Section [facility] Sports [facility] Gastrointestinal Surgery [facility] Encounters Start Date/Time End Date/Time Encounter Type Admission Type Attending Clinicians Care Facility Care Department Encounter ID Source 2023-04-21 11:41:00 Outpatient Trish Archer [facility] [id number] [facility] 2023-02-27 13:42:02 Outpatient Trish Archer [facility] [id number] [facility] 2023-12-22 00:00:00 2023-12-22 00:00:00 OFFICE VISIT ESTAB PT LEVEL [facility] [id number] [facility] 2023-12-20 00:00:00 2023-12-20 00:00:00 (TEL) [facility] [id number] [facility] 2023-12-14 00:00:00 2023-12-14 00:00:00 Outpatient GC_GCBZW_Ka diyala_S PRIV PRIV [id number] [facility] 2023-12-05 00:00:00 2023-12-05 00:00:00 (TEL) [facility] [id number] [facility] 2023-12-01 00:00:00 2023-12-01 00:00:00 Zenaida Burk MD: [address], [place] [address] , Ph. GC_GCBZW_Ka diyala_S [facility] - GC_GCBZW_Sera [facility]* [id number] [facility] 2023-11-28 00:00:00 2023-11-28 00:00:00 CARRINGTON Gallardo: [address], [facility] [address], [place] [address] , Ph. GC_GCBZW_Ka diyala_S [facility] - GC_GCBZW_Sera [facility]* [id number] [facility] 2023-11-27 00:00:00 2023-11-27 00:00:00 Outpatient GC_GCBZW_Ka diyala_S [facility] PRIV [id number] [facility] 2023-11-17 00:00:00 2023-11-17 00:00:00 Outpatient GC_GCBZW_Ka diyala_S [facility] PRIV [id number] [facility] 2023-10-31 00:00:00 2023-10-31 00:00:00 Ambrose Contreras MD: [address] [place] [address] , Ph. WILFRID_Ben_ Ambrose_ [facility] [place] [facility] [place] - FOG_Telemed icine [id number] [facility] 2023-10-27 00:00:00 2023-10-27 00:00:00 (TEL) [facility]LMLC [facility] [id number] [facility] 2023-10-05 00:00:00 2023-10-05 00:00:00 Ambrose Contreras MD: [id number] [address], [place] [address] , Ph. [phone] FOG_Chantal Guallpa [facility] [place] [facility] [place] - [facility] [place] [id number] [facility] 2023-10-05 00:00:00 2023-10-05 00:00:00 Ambrose Contreras MD: [id number] [facility] [address], [place] [address] , Ph. [phone] [facility] [place] [facility] [place] - [facility] [place] [id number] [facility] 2023-10-04 00:00:00 2023-10-04 00:00:00 Outpatient FOG_Chantal Guall[facility] [id number] [facility] 2023-10-03 00:00:00 2023-10-03 00:00:00 Outpatient [facility] [id number] [facility] 2023-06-26 00:00:00 2023-06-26 00:00:00 (TEL) STLMLC STLC [id number] [facility] 2023-05-01 00:00:00 2023-05-01 00:00:00 (TEL) STLMLC STLMLC [id number] [facility] 2023-04-21 00:00:00 2023-04-21 00:00:00 (TEL) STLMLC STLMLC [id number] [facility] 2023-04-20 00:00:00 2023-04-20 00:00:00 PREV VISIT EST AGE 40-64 STLMLC STLMLC [id number] [facility] 2023-03-21 00:00:00 2023-03-21 00:00:00 (TEL) STLMLC STLMLC [id number] [facility] 2023-02-27 00:00:00 2023-02-27 00:00:00 OFFICE VISIT ESTAB PT LEVEL 3 [facility] [id number] [facility] Results Test Description Test Time Test Comments Results Result Co mments Source [facility] - Blood by Automated [id number] 00:00:00* Test Item Value Reference Range Interpretation [...] code = testosterone) 7.1 NG/dL 8.4-48.1 L [facility] [Units/volume] in Serum or [id number] 00:00:00* Test Item Value Reference Range Interpretation Comme nts TSH (test code = TSH) 1.660 uIU/mL 0.500-4.530 [facility] (E2) [Mass/volume] in Serum or [id number] 00:00:00 * Test Item Value Reference Range Interpretation Comme nts estradiol (test code = estradiol) 27.5 pg/mL 6.1-91.9 [facility] [Units/volume] in Serum or [id number] 00:00:00* Test Item Value Reference Range Interpretation Comme nts FSH (test code = FSH) 14.3 mIU/mL [facility]stick[facility] - [id number] 11:32:00* Test Item Value Reference Range Interpretation Comme nts Leukocytes (test code = Leukocytes) Negative Nitrite (test code = Nitrite) negative Urobilinogen (test code = Urobilinogen) Normal Protein (test code = Protein) Negative pH (test code = pH) 6.0 Blood (test code = Blood) 3+ Specific [place] (test code = Specific [place]) 1.005 Ketone (test code = Ketone) Negative Bilirubin (test code = Bilirubin) Negative Glucose (test code = Glucose) Negative Appearance (test code = Appearance) Slightly Cloudy Color (test code = Color) Yellow [facility], THINPREP REFLEX HPV HIGH IF [id number] 00:00:00* Test Item Value Reference Range Interpretation Comme nts CPT: (test code = 75036-7) (NOTE) INFORMATION TECHNOLOGY ASSISTANT: (test code = 09089-2) MUNA Kwan(ASCP) HPV HIGH RISK IF ASC-US, THINPREP (test code = 14227-4) CRITERIA NOT MET LMP: (test code = 8665-2) NOT GIVEN SLIDES: (test code = 80215-9) 1 SOURCE: (test code = 79135-2) Unspecified SPECIMEN ADEQUACY: (test code = 80625-3) (NOTE) IRON, [id number] 00:00:00* Test Item Value Reference Range Interpretation Comme nts IRON, TOTAL (test code = 2498-4) 113 mcg/dL See_Comment N [Automated EnSola ge] The system which generated this result transmitted reference range: 45-160 mcg/dL. The reference range was not used to interpret this result as normal/abnormal. MICROALBUMIN, RANDOM URINE (W/CREATININE)2023-03-24 00:00:00* Test Item Value Reference Range Interpretation Comme nts CREATININE, RANDOM URINE (test code = 2161-8) 45 mg/dL See_Comment N [Automated EnSola gantto] The system which generated this result transmitted reference range: 20-275 mg/dL. The reference range was not used to interpret this result as normal/abnormal. ALBUMIN, URINE (test code = 80079-8) 1.1 mg/dL See Note: mg/dL N ALBUMIN/CREATININ E RATIO, RANDOM URINE (test code = 9318-7) 24 mcg/mg creat See_Comment N [Automated messa ge] The system which generated this result transmitted reference range: <30 mcg/mg creat. The reference range was not used to interpret this result as normal/abnormal.
[2024-01-28] MEDS ORDERED: NA CHLORIDE 0.9% 1,000 ML ONE (04:00)
[2024-01-28 04:26] LABS: Absolute Lymphocytes (CBC) 0.8 K/uL (0.7-4.9); Absolute Monocytes 0.3 K/uL (0.1-1.3); Basophils % 0.6 % (0-1.3); Eosinophils % 0.1 % (0-4.4); Hematocrit 32.5 % (36.0-45.0); Lymphocytes % 11.4 % (15.3-44.8); MCH 26.3 pg (27.0-35.0); MCHC 33.7 g/dL (32.0-36.0); MCV 78.1 fL (80-100); MPV 7.5 fL (7.6-11.3); Monocytes % 3.5 % (3.3-12.3); Neutrophils % 84.4 % (41.7-73.7); Platelets 310 thou/uL (152-406); RBC Red Blood Cell Count 4.17 M/uL (3.86-4.86); Red Cell Distribution Width 13.9 % (12.1-15.2)
[2024-01-28 04:57] LABS: Albumin/Globulin Ratio 0.8 (1.1-1.8); Anion Gap 12.1 mEq/L (5.0-15.0); Bilirubin Total 1.5 mg/dL (0.2-1.0); Globulin 3.8 g/dL (2.3-3.5); Potassium 3.1 mEq/L (3.5-5.1); Protein, Total 6.8 g/dL (6.4-8.2)
[2024-01-28] MEDS ORDERED: NA CHLORIDE 0.9% 0 ML ONE (05:57)
[2024-01-28] MEDS ORDERED: NS KCL 20MEQ 0 ML IV ONE (06:01)
[2024-01-28] MEDS ORDERED: KCL 20 MEQ/100 mL IVPB 100 ML IV ONE (06:12)
[2024-01-28] MEDS ORDERED: NA CHLORIDE 0.9% 250 ML ONE (06:17)
--- NOTE | 2024-01-28 06:25 | RAD REPORT ---
EXAM DESCRIPTION: CTAbdomen Pelvis W Contrast - 01/28/2024 5:12 am CLINICAL HISTORY: ABD PAIN COMPARISON: Abdomen Pelvis W Contrast dated 12/15/2023; Stone Protocol dated 04/04/2021 TECHNIQUE: CT of the abdomen and pelvis was performed. All CT scans are performed using dose optimization technique as appropriate and may include automated exposure control or mA/KV adjustment according to patient size. FINDINGS: Lower chest: No acute abnormality. Liver: Mild intrahepatic biliary duct dilatation. No focal liver mass. Biliary: No biliary ductal dilatation. Stomach: Dimas-en-Y gastric bypass. There is fluid noted within the excluded stomach. Duodenum: No significant focal abnormality. Pancreas: No significant abnormality. Spleen: No significant abnormality. Adrenal: No suspicious lesions. Kidney/ureter: No hydronephrosis. Punctate stone right kidney. Retroperitoneum: No retroperitoneal adenopathy. Vascular: No aneurysm. Bowel: No significant focal abnormality. Peritoneum: No ascites or free air. Small fat containing umbilical hernia. Bladder: Grossly unremarkable. Reproductive: Low-lying IUD which is out of position. Probable uterine fibroids. Left adnexal cysts, largest measuring 3.8 cm which are new since 12/15/2023 and therefore almost certainly physiologic. N o follow-up is required. . Bones: No acute fracture. Other: n/a IMPRESSION: 1. Status post Dimas-en-Y gastric bypass. Fluid present within the excluded stomach which is similar to prior. No fistula identified. No bowel obstruction or internal hernia identified. 2. New left adnexal cysts which are almost certainly physiologic given the time course of development (since 12/15/2023). 3. The IUD is out of position in the lower uterine segment. The limbs may be embedded into the uterin e wall.
--- NOTE | 2024-01-28 06:29 | RAD REPORT ---
EXAM DESCRIPTION: US - Abdomen Exam Limited - 01/28/2024 5:56 am CLINICAL HISTORY: ruq u/s COMPARISON: Abdomen Pelvis W Contrast dated 01/28/2024; Abdomen Pelvis W Contrast dated 12/15/2023 FINDINGS: The gallbladder demonstrates shadowing gallstones. No pericholecystic fluid or gallbladder wall thickening. The common bile duct is normal measuring 4 mm. The gallbladder is distended. No son ographic Mcdermott's sign elicited. The liver demonstrates no findings of intrahepatic biliary dilatation. IMPRESSION: Cholelithiasis with gallbladder distention but no sonographic evidence of acute cholecys titis. No biliary ductal dilatation.
--- NOTE | 2024-01-28 06:33 | EDPHYS ---
Physician Documentation [facility] Name: Luana Pineda Age: 53 yrs Sex: Female : 1970 Arrival Date: 01/28/2024 Time: 03:46 Bed 6 Private MD: ED Physician Roberto Carlos Akhtar HPI: 01/27 04:00 This 53 yrs old Female presents to ER via EMS with complaints of abd pain, ec2 n/v. 04:00 Patient arrives today for evaluation of abdominal pain along with nausea and vomiting. ec2 Patient reports that she has been experiencing 1 day of symptoms. Patient reports that she took Phenergan, EMS reports that they gave her Zofran as well. Patient reports history of gastric bypass, x 2 as well as tubal ligation. Patient reports bouts of nausea and vomiting. Reports generalized abdominal pain. No issues with bowels. No issues with urine.. 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 Flu vaccine is not up to date. - Infectious Disease History:: Denies. - Social history:: Smoking status: Patient denies any tobacco usage or history of. Patient/guardian denies using alcohol, street drugs. ROS: 04:00 Constitutional: as per hpi ec2 Exam: 04:00 Constitutional: GEN: NAD Head: atraumatic Eyes: EOMI Ears: External ears are ec2 normal. CV: regular rate LUNGS: no respiratory distress ABD: non-distended, obese, generally tender, not guarding, not rigid SKIN: no evidence of rashes MSK: no evidence of trauma NEURO: moves all extremities equally Vital Signs: 03:51 BP 156 / 84; Pulse 62; Resp 17 S; Temp 97.6(O); Pulse Ox 100% on R/A; Weight 113.4 kg lg3 (R); Height 5 ft. 8 in. (R); 05:00 BP 125 / 71; Pulse 56; Resp 15 S; Pulse Ox 98% on R/A; lg3 07:20 BP 121 / 60; Pulse 44; Resp 15 S; Pulse Ox 99% on R/A; kc6 03:51 Body Mass Index 38.01 (113.40 kg, 172.72 cm) lg3 MDM: 03:51 Patient medically screened. ec2 04:00 Data reviewed: vital signs. ED course: Patient arrives today for evaluation of ec2 generalized abdominal pain. Examination remarkable for abdominal findings noted above. Will obtain lab work, CT imaging and treat the patient's symptoms. Differential diagnosis includes processes such as small bowel obstruction, gastroenteritis, urinary tract infection.. 04:15 ED course: EKG independently reviewed and interpreted by me, shows normal sinus rhythm, ec2 rate of 54, no acute ST segment elevations, intervals are nonconcerning, no evidence of QTc prolongation. Will give the patient droperidol for her nausea and vomiting. . 05:38 ED course: CBC shows slight anemia. Metabolic profile shows slight hypokalemia with ec2 potassium of 3.1, renal function is appropriate, LFTs are minimally abnormal, slight T. bili elevation. Lipase elevated at 461. CPK within normal ranges. . 06:27 ED course: CT imaging shows no evidence of small bowel obstruction. Left-sided adnexal ec2 cyst noted, likely physiologic per radiology. Does show a replaced IUD placement. This can be managed outpatient expectantly with gynecology. . 06:30 ED course: Ultrasound shows cholelithiasis without cholecystitis, no CBD dilation.. ec2 06:33 ED course: Of note regarding patient's IUD dislodgment, patient is scheduled to have ec2 her IUD removed in 5 days. Will proceed with discharge, return precautions given.. 01/27 03:52 Order name: CBC with Diff; Complete Time: 05:35 ec2 01/27 03:52 Order name: CMP; Complete Time: 05:35 ec2 01/27 03:52 Order name: Lipase; Complete Time: 05:35 ec2 01/27 04:24 Order name: Creatine Phosphokinase; Complete Time: 05:35 EDMS 01/27 03:52 Order name: CT Abd/Pelvis - IV Contrast Only; Complete Time: 06:28 ec2 01/27 05:38 Order name: US Abdomen Limited; Complete Time: 06:30 ec2 01/27 03:52 Order name: IV Saline Lock; Complete Time: 03:58 ec2 01/27 03:52 Order name: Labs collected and sent; Complete Time: 04:18 ec2 01/27 03:55 Order name: EKG - Nurse/Tech; Complete Time: 04:17 ec2 Administered Medications: 04:18 Drug: NS 0.9% IV 1000 ml IV at 1 bolus Per protocol; 1000 mL bolus Route: IV; Rate: 1 lg3 bolus; Site: right antecubital; 04:39 Drug: Droperidol IVP 2.5 mg IVP once Route: IVP; Site: right antecubital; lg3 06:25 Drug: Potassium Chloride IV 20 mEq IV at calculated rate once; administer over 1-2 jb4 hours {Note: administered with 250ml of NS.} Route: IV; Rate: calculated rate; Site: right forearm; 08:26 Follow up: Response: No adverse reaction; IV Status: Completed infusion; IV Intake: kc6 100ml Disposition Summary: 01/28/24 06:33 Discharge Ordered Notes: Location: Home ec2 Condition: Stable ec2 Diagnosis - Abdominal pain, Generalized ec2 - Other ovarian cysts ec2 - IUD Dislodged ec2 - Hypokalemia ec2 Followup: ec2 - With: Private Physician - When: - Reason: Recheck today's complaints, Re-evaluation by your physician Discharge Instructions: - Discharge Summary Sheet ec2 - Abdominal Pain, Adult ec2 Forms: - Medication Reconciliation Form ec2 - Antibiotic Education ec2 - Prescription Opioid Use ec2 - Patient Portal Instructions ec2 - Leadership Thank You Letter ec2 Signatures: Dispatcher [employer] Arnold Llamas RN RN jb4 Kimberly Juan RN RN lg3 Roberto Carlos Akhtar MD MD ec2 Emi Onofre RN kc6
--- NOTE | 2024-01-28 06:33 | ER ---
Nurse's Notes [facility] Name: Luana Pineda Age: 53 yrs Sex: Female : 1970 Arrival Date: 01/28/2024 Time: 03:46 Bed 6 Private MD: Diagnosis: Abdominal pain, Generalized;Other ovarian cysts;IUD Dislodged;Hypokalemia Presentation: 01/27 03:51 Chief complaint: Patient states: N/V beginning 0000. 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 Coronavirus screen: Client denies travel out of the [place] in the last 14 days. At this time, the client does not indicate any symptoms associated with coronavirus-19. Ebola Screen: No symptoms or risks identified at this time. Initial Sepsis Screen: Does the patient meet any 2 criteria? No. Patient's initial sepsis screen is negative. Does the patient have a suspected source of infection? No. Patient's initial sepsis screen is negative. Risk Assessment: Do you want to hurt yourself or someone else? Patient reports no desire to harm self or others. Onset of symptoms was January 28, 2024. 03:51 Method Of Arrival: EMS: [facility] lg3 03:51 Acuity: SANTIAG[place] 3 lg3 Triage Assessment: 03:54 General: Appears in no apparent distress. uncomfortable, Behavior is calm, cooperative. lg3 Pain: Denies pain. EENT: No deficits noted. No signs and/or symptoms were reported regarding the EENT system. Neuro: No deficits noted. Alejo Agitation-Sedation Scale (RASS): 0 - Alert and Calm Level of Consciousness is awake, alert, obeys commands, Oriented to person, place, time, situation. Cardiovascular: No deficits noted. Denies chest pain, shortness of breath, Heart tones S1 S2 present Capillary refill < 3 seconds Clubbing of nail beds is absent JVD is absent Patient's skin is warm and dry. Respiratory: No deficits noted. Airway is patent Respiratory effort is even, unlabored, Respiratory pattern is regular, symmetrical, Breath sounds are clear bilaterally. GI: Abdomen is round non-distended, obese, Bowel sounds present X 4 quads. Reports intolerance of fluids, intolerance of food, nausea, vomiting. : No signs and/or symptoms were reported regarding the genitourinary system. Derm: No deficits noted. No signs and/or symptoms reported regarding the dermatologic system. Skin is intact, is healthy with good turgor, Skin is dry, Skin is normal, Skin temperature is warm. Musculoskeletal: No deficits noted. Circulation, motion, and sensation intact. Range of motion: intact in all extremities. 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 Flu vaccine is not up to date. - Infectious Disease History:: Denies. - Social history:: Smoking status: Patient denies any tobacco usage or history of. Patient/guardian denies using alcohol, street drugs. Screenin:55 [facility] ED Fall Risk Assessment (Adult) History of falling in the last 3 months, lg3 including since admission No falls in past 3 months (0 pts) Confusion or Disorientation No (0 pts) Intoxicated or Sedated No (0 pts) Impaired Gait No (0 pts) Mobility Assist Device Used No (0 pt) Altered Elimination No (0 pt) Score/Fall Risk Level 0 - 2 = Low Risk Oriented to surroundings, Maintained a safe environment, Educated pt \T\ family on fall prevention, incl call for assistance when getting out of bed, Assessed \T\ reinforced patient's understanding of fall precautions, Provided non-skid footwear. Abuse screen: Denies threats or abuse. Denies injuries from another. Nutritional screening: No deficits noted. Tuberculosis screening: No symptoms or risk factors identified. Assessment: 03:55 General: see triage assessment. lg3 05:10 Reassessment: Patient appears in no apparent distress at this time. Patient and/or lg3 family updated on plan of care and expected duration. Pain level reassessed. Patient is alert, oriented x 3, equal unlabored respirations, skin warm/dry/pink. Patient states feeling better. 06:40 Reassessment: Patient appears in no apparent distress at this time. Patient and/or jb4 family updated on plan of care and expected duration. Pain level reassessed. Patient is alert, oriented x 3, equal unlabored respirations, skin warm/dry/pink. D/c pending completion of IV fluids. 07:20 Reassessment: Patient appears in no apparent distress at this time. No changes from kc6 previously documented assessment. Patient and/or family updated on plan of care and expected duration. Pain level reassessed. Patient is alert, oriented x 3, equal unlabored respirations, skin warm/dry/pink. Vital Signs: 03:51 BP 156 / 84; Pulse 62; Resp 17 S; Temp 97.6(O); Pulse Ox 100% on R/A; Weight 113.4 kg lg3 (R); Height 5 ft. 8 in. (R); 05:00 BP 125 / 71; Pulse 56; Resp 15 S; Pulse Ox 98% on R/A; lg3 07:20 BP 121 / 60; Pulse 44; Resp 15 S; Pulse Ox 99% on R/A; kc6 03:51 Body Mass Index 38.01 (113.40 kg, 172.72 cm) lg3 ED Course: 03:51 Patient arrived in ED. ec2 03:51 Roberto Carlos Akhtar MD is Attending Physician. ec2 03:51 Kimberly Juan, KARLA is Primary Nurse. lg3 03:54 Triage completed. lg3 03:54 Arm band placed on left wrist. lg3 03:55 Patient has correct armband on for positive identification. Placed in gown. Bed in low lg3 position. Call light in reach. Side rails up X 1. Client placed on continuous cardiac and pulse oximetry monitoring. NIBP monitoring applied. Door closed. Noise minimized. Warm blanket given. Pillow given. Family accompanied patient. 03:55 Maintain EMS IV. Dressing intact. Good blood return noted. Site clean \T\ dry. Gauge \T\ lg 3 site: 20 Rwrist. 04:17 Inserted saline lock: 22 gauge in right antecubital area, using aseptic technique. lg3 Blood collected. 04:18 CBC with Diff Sent. lg3 04:18 CMP Sent. lg3 04:18 Lipase Sent. lg3 05:14 CT Abd/Pelvis - IV Contrast Only In Process Unspecified. EDMS 05:58 US Abdomen Limited In Process Unspecified. EDMS 07:00 Report received from KARLA Harris. kc6 08:34 No provider procedures requiring assistance completed. IV discontinued, intact, kc6 bleeding controlled, No redness/swelling at site. Pressure dressing applied. Administered Medications: 04:18 Drug: NS 0.9% IV 1000 ml IV at 1 bolus Per protocol; 1000 mL bolus Route: IV; Rate: 1 lg3 bolus; Site: right antecubital; 04:39 Drug: Droperidol IVP 2.5 mg IVP once Route: IVP; Site: right antecubital; lg3 06:25 Drug: Potassium Chloride IV 20 mEq IV at calculated rate once; administer over 1-2 jb4 hours {Note: administered with 250ml of NS.} Route: IV; Rate: calculated rate; Site: right forearm; 08:26 Follow up: Response: No adverse reaction; IV Status: Completed infusion; IV Intake: kc6 100ml Medication: 08:34 VIS not applicable for this client. kc6 Intake: 08:26 IV: 100ml; Total: 100ml. kc6 Outcome: 06:33 Discharge ordered by . ec2 08:34 Discharged to home via wheelchair, with significant other, kc6 08:34 Condition: good 08:34 Discharge instructions given to patient, significant other, Instructed on discharge instructions, follow up and referral plans. Demonstrated understanding of instructions, follow-up care, 08:34 Patient left the ED. kc6 Signatures: Dispatcher [employer] Arnold Llamas RN RN jb4 Kimberly Juan RN RN lg3 Emi Onofre RN RN kc6 Roberto Carlos Akhtar MD MD ec2
[2024-01-28 08:56] VITALS: BP 121/60; TEMP 97.6; O2SAT 99
--- NOTE | 2024-01-30 14:20 | EKG ---
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
== END 2024-01-28 08:34 | disposition home or self-care (01) ==
LOC: ER 03:46
DX: R10.84 Generalized abdominal pain (principal); N83.299 Other ovarian cyst, unspecified side; T83.32XA Displacement of intrauterine contraceptive device, initial encounter; E87.6 Hypokalemia
CPT/HCPCS: 96365; 93005; 85025; 36415; 82550; 83690; 80053; 74177; 76705; 96375; 99284; 96366; Q9967; J3480; J7050; J7030